=== PATIENT | female | born 1990 | race Caucasian/White ===

== ENCOUNTER 2021-05-08 20:15 | Emergency (ER) | payer MEDICAID ==
[~2021-05-08] VITALS: Ht 157.5 cm; Wt 95.5 kg
[2021-05-08 20:51] VITALS: BP 118/79; PULSE 108; TEMP 97.5
[2021-05-08 22:08] LABS: STREP SCREEN NEGATIVE
== END 2021-05-08 22:23 | disposition left against medical advice (07) ==
LOC: COL.ER 20:15
PROVIDERS: Emergency Medicine
DX: J02.9 Acute pharyngitis, unspecified (principal); R60.0 Localized edema; Z90.89 Acquired absence of other organs
CPT/HCPCS: J8540

== ENCOUNTER 2022-04-01 21:02 | Emergency (ER) | payer MEDICAID ==
[~2022-04-01] VITALS: Ht 157.5 cm; Wt 81.8 kg
[2022-04-01 21:15] VITALS: TEMP 98.6
[2022-04-01 23:53] VITALS: BP 118/75; PULSE 92
== END 2022-04-01 23:56 | disposition home or self-care (01) ==
LOC: COL.ER 21:02
DX: M79.7 Fibromyalgia (principal); Z28.310 Unvaccinated for COVID-19
CPT/HCPCS: J1885